=== PATIENT | male | born 1995 | race Caucasian/White ===

== ENCOUNTER → 2018-08-27 | Outpatient (REF) | payer OTHER ==
[2018-08-27 15:55] LABS: SEMEN APPEARANCE OPAQUE (OPAQUE); SEMEN VISCOSITY LIQUID (LIQUID); SEMEN VOLUME 2.2 ml (2.0-5.0); SPERM CONCENTRATION 5.5 M/ml (>=15.0); WBC CONCENTRATION >1 M/ml (<=1 M/ml)
== END ==
LOC: M LAB REF 15:30
PROVIDERS: ATTEND Physician Assistant
DX: N46.9 Male infertility, unspecified (principal)

== ENCOUNTER → 2018-10-16 | Outpatient (REF) | payer OTHER ==
[2018-10-16 12:35] LABS: SEMEN APPEARANCE OPAQUE (OPAQUE); SEMEN VISCOSITY LIQUID (LIQUID); SEMEN VOLUME 2.5 ml (2.0-5.0); SEMEN pH 8.5 (7.0-8.0); SPERM CONCENTRATION 15.8 M/ml (>=15.0); WBC CONCENTRATION >1 M/ml (<=1 M/ml)
== END ==
LOC: M LAB REF 12:16
PROVIDERS: ATTEND Physician Assistant
DX: Z31.41 Encounter for fertility testing (principal)

== ENCOUNTER → 2019-04-10 | Outpatient (REF) | payer OTHER ==
[2019-04-10 13:04] LABS: SEMEN APPEARANCE OPAQUE (OPAQUE)
[2019-04-10 13:05] LABS: SEMEN VISCOSITY LIQUID (LIQUID); SEMEN VOLUME 1.6 ml (2.0-5.0); SPERM CONCENTRATION 17.1 M/ml (>=15.0); WBC CONCENTRATION >1 M/ml (<=1 M/ml)
== END ==
LOC: M LAB REF 11:42
PROVIDERS: ATTEND Physician Assistant
DX: Z31.41 Encounter for fertility testing (principal)

== ENCOUNTER 2021-11-07 21:50 | Day surgery (SDC) | payer OTHER ==
[~2021-11-07] VITALS: Ht 177.8 cm; Wt 95.6 kg
[2021-11-07 23:37] LABS: BASO % 0.2 % (0.0-1.0); EOS # 0.1 10^3/uL (0.0-0.5); EOS % 0.9 % (0.0-3.0); HEMATOCRIT 42.9 % (42.0-52.0); HEMOGLOBIN 14.1 g/dl (13.5-17.5); LYMPH # 1.7 10^3/uL (1.5-5.0); LYMPH % 14.3 % (24.0-44.0); MEAN CORPUSCULAR HEMOGLOBIN 27.4 pg (27.0-33.0); MEAN CORPUSCULAR HGB CONC 32.9 g/dl (32.0-36.5); MEAN CORPUSCULAR VOLUME 83.5 fl (80.0-96.0); MONO # 0.9 10^3/uL (0.0-0.8); MONO % 7.5 % (2.0-8.0); NEUTROPHILS # 9.2 10^3/uL (1.5-8.5); NEUTROPHILS % 76.6 % (36.0-66.0); PLATELET COUNT, AUTOMATED 253 10^3/uL (150-450); RED BLOOD COUNT 5.14 10^6/uL (4.30-6.10)
[2021-11-07 23:57] LABS: ALBUMIN 4.2 GM/DL (3.2-5.2); ALT/SGPT 24 U/L (12-78); BILIRUBIN,DIRECT 0.2 MG/DL (0.0-0.2); BILIRUBIN,TOTAL 0.7 MG/DL (0.2-1.0); BLOOD UREA NITROGEN 17 MG/DL (7-18); CALCIUM LEVEL 9.2 MG/DL (8.5-10.1); CARBON DIOXIDE LEVEL 28 MEQ/L (21-32); CHLORIDE LEVEL 104 MEQ/L (98-107); CREATININE FOR GFR 1.17 MG/DL (0.70-1.30); GLOMERULAR FILTRATION RATE > 60.0 (>60); GLUCOSE, FASTING 94 MG/DL (70-100); LIPASE 94 U/L (73-393); POTASSIUM SERUM 3.9 MEQ/L (3.5-5.1); SODIUM LEVEL 137 MEQ/L (136-145)
[2021-11-08] MEDS ORDERED: ISOVUE-370 76% 100ML VIAL As Ordered ONE (01:47)
[2021-11-08 02:37] LABS: RSV AMPLIFICATION NEGATIVE (NEGATIVE)
[2021-11-08] MEDS ORDERED: PIPERACILLIN/TAZOBACTAM SOD 3.375 GM in D5W MINI-BAG PLUS 50 ML IV ONE (04:05)
[2021-11-08] MEDS ORDERED: HOME MED LIST COMPLETE! XX SCH (05:20)
[2021-11-08] MEDS ORDERED: LR 1,000 ML IV SCH ×3 (05:35→10:45)
[2021-11-08] MEDS ORDERED: BUPIVACAINE HCL 0.25% 30ML VIAL As Ordered ONE (05:38)
[2021-11-08] MEDS ORDERED: fentaNYL 250 MCG/5 ML INJECTION As Ordered ONE (06:00)
[2021-11-08] MEDS ORDERED: MIDAZOLAM INJ 2MG/2ML VIAL (J2250 PER 1MG) As Ordered ONE (06:00)
[2021-11-08] MEDS ORDERED: propofoL 200 MG/20 ML VIAL As Ordered ONE ×2 (06:01→06:28)
[2021-11-08] MEDS ORDERED: ONDANSETRON 4MG 2ML VIAL As Ordered ONE (06:02)
[2021-11-08] MEDS ORDERED: SUCCINYLCHOLINE 100 MG/5 ML SYRINGE (J0330) As Ordered ONE (06:02)
[2021-11-08] MEDS ORDERED: ROCURONIUM BROMIDE 50 MG/5 ML VIAL As Ordered ONE (06:02)
[2021-11-08] MEDS ORDERED: dexameTHASONE 4 MG/ML 1ML VIAL (J1100 PER 1MG) As Ordered ONE (06:02)
[2021-11-08] MEDS ORDERED: LIDOCAINE 2% 100MG/5ML SDV (FOR ANES.) As Ordered ONE (06:02)
[2021-11-08] MEDS ORDERED: ACETAMINOPHEN 1000MG 100ML IV BTL (OFIRMEV) (J0131 PER 10MG) As Ordered ONE (06:26)
[2021-11-08] MEDS ORDERED: SUGAMMADEX SODIUM 500 MG/5 ML VIAL (BRIDION) As Ordered ONE (06:26)
[2021-11-08] MEDS ORDERED: KETOROLAC 60MG 2ML VIAL As Ordered ONE (06:26)
[2021-11-08] MEDS ORDERED: ACETAMINOPHEN TAB 650MG DOSE (2X325MG) PO PRN (07:25)
[2021-11-08] MEDS ORDERED: IBUPROFEN 600MG TAB PO PRN (07:25)
[2021-11-08] MEDS ORDERED: NORCO, ANEXSIA 5/325MG TABLET (HYDROcodone/ACETAMINOPHEN) PO PRN (07:25)
[2021-11-08] MEDS ORDERED: ONDANSETRON 4MG 2ML VIAL IV PRN ×2 (07:30→10:45)
[2021-11-08] MEDS ORDERED: HYDROMORPHONE HCL 0.5 MG/ 0.5 ML SYRINGE (J1170 PER 1) IV PRN ×2 (07:30→10:45)
[2021-11-08] MEDS ORDERED: oxyCODONE 5MG TAB PO PRN ×2 (07:30→10:50)
[2021-11-08] MEDS ORDERED: fentaNYL 100 MCG/2 ML INJECTION IV PRN ×2 (07:30→10:45)
[2021-11-08] MEDS ORDERED: PIPERACILLIN/TAZOBACTAM SOD 3.375 GM in D5W MINI-BAG PLUS 50 ML IV SCH (11:00)
[2021-11-08] MEDS ORDERED: METOCLOPRAMIDE INJ 10MG/2ML VIAL (J2765 PER 1) IV PRN (12:00)
[2021-11-08] MEDS ORDERED: PROMETHAZINE 25MG/ML 1ML VIAL IV PRN (12:00)
[2021-11-08 14:07] VITALS: BP 124/58
== END 2021-11-08 14:25 | disposition home or self-care (01) ==
LOC: M ED 21:50 → M SDC 11-08 05:35
PROVIDERS: ATTEND Surgery
DX: K35.80 Unspecified acute appendicitis (principal)
CPT/HCPCS: 36415; 44970; 74177; 80053; 82248; 83690; 85025; 87631; 88304; 96374; 99284; J0131; J0330; J1100; J1885; J2250; J2405; J2543; J2765; J3010; Q9967

== ENCOUNTER → 2022-05-02 | Outpatient (REF) | LOC: M PLAIMG 11:53 | PROVIDERS: ATTEND Internal Medicine | DX: R52 Pain, unspecified (principal) ==